=== PATIENT | male | born 1990 | race African-American/Black ===

== ENCOUNTER → 2016-09-21 17:35 | Emergency (ER) | payer SELFPAY ==
[~2016-09-21 17:35] MED LIST: BACTRIM DS TABL1 TA1 PO; KEFLEX500 MG PO; NAPROSYN500 MG PO; NO MEDICATIONS; ROBAXIN500 MG PO; TYLENOL #3 PO
== END | disposition left against medical advice (07) ==
LOC: CED 17:35
DX: Z53.21 Procedure and treatment not carried out due to patient leaving prior to being seen by health care provider (principal)